=== PATIENT | male | born 1980 | race Caucasian/White ===

== ENCOUNTER → 2022-10-15 09:25 | Outpatient (BNVA) | payer OTHER, SELFPAY | PROVIDERS: Visit Provider Emergency Medicine | DX: J02.9 Acute pharyngitis, unspecified (principal); R50.9 Fever, unspecified | CPT/HCPCS: 87071; 87400; 87880 ==

== ENCOUNTER → 2023-01-22 09:56 | Outpatient (BNVA) | payer OTHER, SELFPAY | PROVIDERS: Visit Provider Emergency Medicine | DX: R69 Illness, unspecified (principal); J98.8 Other specified respiratory disorders; B97.89 Other viral agents as the cause of diseases classified elsewhere | CPT/HCPCS: 87400; 87426 ==

== ENCOUNTER → 2023-01-25 10:27 | Outpatient (BNVA) | payer OTHER, SELFPAY | PROVIDERS: Visit Provider Nurse Practitioner Family | DX: R06.02 Shortness of breath (principal) | CPT/HCPCS: 71046 ==

== ENCOUNTER 2023-09-29 00:07 | Emergency (ER) | payer OTHER, SELFPAY ==
[2023-09-29 00:19] VITALS: BP 155/91; PULSE 96; RESP 16; TEMP 36.7; O2SAT 96; BMI 27.9
--- NOTE | 2023-09-29 01:24 | W.ED.EXTPRO ---
HPI - Extremity Problem General: Chief complaint: Extremity Injury, Lower Stated complaint: believes blood clot on left leg Time Seen by Provider: 09/29/23 01:21 History of Present Illness: Patient presents to the ER because he thinks he has a blood clot in his left lower leg. Patient states that he has a red swollen painful area they first noticed yesterday. Has been trying to stay off of it thinking it would get better and has not actually gotten worse. Patient does not have a history of a blood clot. Or any clotting disorders. Per patient there is no known trauma to this area. Nothing seems to make this area better but the more he is up on it the more it seems to hurt. Review of Systems General: Reports: 10 or more systems reviewed and unremarkable except in HPI and below Physical Exam Const: COMMON NORMALS: no acute distress, average body habitus, patient oriented x3, no limitations, healthy appearing, alert and well nourished HENMT: COMMON NORMALS: normocephalic, atraumatic, hearing grossly normal bilaterally, external ears normal, Normal external nose present and moist oral mucous membranes HEAD & SCALP: normocephalic and atraumatic NOSE: Normal external nose present EXTERNAL EAR: Yes external ears normal Neck/C-Spine: COMMON NORMALS: no JVD Chest: COMMONS NORMALS: normal inspection of the chest and normal palpation of entire chest wall Resp: COMMON NORMALS: normal respiratory effort, No retractions, No use of accessory muscles and clear to auscultation bilaterally AUSCULTATION: clear to auscultation bilaterally Cardio: COMMON NORMALS: no JVD, regular rate, regular rhythm, S1 normal heart sound present, S2 normal heart sound present, No gallops present (Cardio), No clicks present (Cardio), No murmurs present (Cardio) and No rub (Cardio) RATE: regular rate RHYTHM: regular rhythm HEART SOUNDS: S1 normal heart sound present and S2 normal heart sound present GI: COMMON NORMALS: Normal to inspection, nondistended, normoactive bowel sounds present, Soft to palpation, non-tender, No hepatosplenomegaly present and no masses PALPATION: Yes Soft to palpation and Yes No hepatosplenomegaly present Extremity: NARRATIVE EXTREMITY EXAM: Left lower leg medial aspect near the distal area of the calf red erythematous area tender to palpate, Homans' sign is negative, there is no tenderness to palpate anywhere else or squeezing of the calf. No edema noted Neuro: COMMON NORMALS: patient oriented x3 SENSORIUM/ORIENTATION: Yes alert Course Vital Signs: Vital signs: Vital Signs Temperature 98.0 F 09/29/23 00:19 Pulse Rate 96 09/29/23 00:19 Respiratory Rate 16 09/29/23 00:19 Blood Pressure 155/91 09/29/23 00:19 Pulse Oximetry 96 09/29/23 00:19 Oxygen Delivery Me thod Room Air 09/29/23 00:19 MDM - Extremity (Nontraumatic) Medical Decision Making Lab work was obtained including D-dimer which was 0.32, this is negative, likelihood of a clot is very unlikely, patient be treated with antibiotics for cellulitis. Differential Diagnosis Likely cellulitis; Unlikely herpes zoster, gout, superficial thrombophlebitis, deep venous thrombosis of upper extremity, lower extremity edema or deep vein thrombosis of lower extremity Medical Records I reviewed the patient's medical records. Lab Data I reviewed the patient's lab results. Laboratory Results D-Dimer 0.32 ug/mLFEU (0-0.59) 09/29/23 01:24 No radiology studies performed this visit Discharge Plan Discharge Patient Disposition: Home Clinical Impression: Cellulitis Qualifiers: Site of cellulitis: extremity Site of cellulitis of extremity: lower extremity Laterality: left Qualified Code(s): L03.116 - Cellulitis of left lower limb Condition: Stable Prescriptions: New Bactrim DS 800-160 mg tablet 1 tab PO BID Qty: 14 0RF No Action albuterol sulfate 90 mcg/actuation HFA aerosol inhaler 2 puff inhalation Q6H PRN (Reason: shortness of breath or wheezing) Qty: 8.5 0RF doxycycline hyclate 100 mg tablet 100 mg PO BID 7 Days Qty: 14 0RF prednisone 20 mg tablet 20 mg PO DAILY Qty: 18 0RF Rx Instructions: Take 60mg (3 tabs) days 1, 2, 3 Take 40mg (2 tabs) days 4,5,6 take 20mg (1 tab) days 7,8,9 Discharge Orders: Discharge ED (Routine); Ordered 09/29/23 Ordered By: Elder Viveros Referrals: Abdoul Millan DO [Primary Care Provider] - 1 week Patient Instructions: Cellulitis Activity Restrictions/Additional Instructions: Your Lyme test was negative for DVT, this area may be cellulitis which is an infection underneath the skin. You will be treated with an antibiotic. Please take [id number] Tylenol and Motrin as needed for pain. Please follow-up with your family doctor within neck 7 days for further evaluation and treatment. Coding Level of Care Code ED Television Production Assistant for Eric Toro
[2023-09-29 01:49] LABS: D Dimer 0.32 ug/mLFEU (0-0.59)
[2023-09-29] MEDS: sulfamethoxazole-trimeth DS 160-800 mg Tablet 1 TAB PO (02:08)
[2023-09-29 02:15] VITALS: BP 155/91; PULSE 96; RESP 16; TEMP 36.7; O2SAT 96
== END 2023-09-29 02:16 | disposition home or self-care (01) ==
PROVIDERS: Emergency Provider Emergency Medicine; PCP Family Medicine
DX: L03.116 Cellulitis of left lower limb (principal)
CPT/HCPCS: 36415; 85378; 99283

== ENCOUNTER 2023-10-05 07:13 | Outpatient (CLI) | payer OTHER, SELFPAY | END 2023-10-05 07:14 | disposition home or self-care (01) | LOC: RT 07:13 | PROVIDERS: PCP Family Medicine; Visit Provider Family Medicine | DX: R05.9 Cough, unspecified (principal) | CPT/HCPCS: 94010; 94610; 94726 ==